=== PATIENT | male | born 1960 | race Caucasian/White ===

== ENCOUNTER 2017-10-01 12:12 | Inpatient (IN) | payer OTHER ==
[~2017-10-01] VITALS: Ht 175.3 cm; Wt 113.0 kg
[~2017-10-01 12:12] MED LIST: ALBU8.5H8 INH; ASPI325T11 PO; ATOR40TA PO; ESOM20CA PO; FLUT1DIS3 IH; HYDR25TA9 PO; LOSA50TA6 PO; MELO15TA6 PO; METF500T4 PO; POTA20TA12 PO; PRAM0.255 PO; TERB250T PO
[2017-10-01 12:51] VITALS: BP 143/91
[2017-10-01] MEDS: IV NORMAL SALINE 1,000ML 1,000 ML IV SCH ×2 (12:56→21:23)
[2017-10-01] MEDS ORDERED: KETOROLAC 30 MG/ML VIAL. IV PRN (13:00)
[2017-10-01] MEDS ORDERED: ONDANSETRON PF 4 MG/2 ML VIAL. IV PRN (13:00)
[2017-10-01] MEDS ORDERED: CETI10TA16 PO (13:38)
[2017-10-01] MEDS ORDERED: TAMS0.4C97 PO (13:38)
[2017-10-01] MEDS ORDERED: ESCITALOPRAM OX20 MG PO (13:38)
[2017-10-01] MEDS ORDERED: ASPI-630 PO (13:38)
[2017-10-01] MEDS ORDERED: LACT1CAP8 PO (13:38)
[2017-10-01] MEDS ORDERED: ALBU8.5H8 INH (13:39)
[2017-10-01] MEDS ORDERED: BUDE10.2 IH (13:39)
[2017-10-01] MEDS ORDERED: GABA-586 PO (13:39)
[2017-10-01 13:48] LABS: BASO # 0.1 x10^3/uL (0.0-0.2); BASO % 1 % (0-3); EOS % 0 % (0-3); HEMATOCRIT 46.3 % (39.0-53.0); HEMOGLOBIN 15.3 g/dL (13.0-17.5); LYMPH # 0.8 x10^3/uL (1.0-4.8); LYMPH % 5 % (24-48); MEAN CORPUSCULAR HEMOGLOBIN 28 pg (25-35); MEAN CORPUSCULAR HGB CONC 33 g/dL (31-37); MEAN CORPUSCULAR VOLUME 85 fL (79-100); MONO # 0.4 x10^3/uL (0.0-1.1); MONO % 2 % (0-9); NEUT # 14.7 x10^3uL (1.8-7.7); NEUT % 92 % (31-73); PLATELET COUNT 222 x10^3/uL (140-400); RED BLOOD COUNT 5.46 x10^6/uL (4.30-5.70); RED CELL DISTRIBUTION WIDTH 14.4 % (11.5-14.5)
[2017-10-01 13:52] VITALS: BP 143/91
[2017-10-01] MEDS ORDERED: Influenza vaccine per PROTOCOL. MC PRN (14:00)
[2017-10-01 14:01] LABS: ALBUMIN 3.5 g/dL (3.4-5.0); ALBUMIN/GLOBULIN RATIO 0.9 (1.0-1.7); CALCIUM 9.8 mg/dL (8.5-10.1); CREATININE 1.3 mg/dL (0.7-1.3); GFR 57.1; MAGNESIUM 1.6 mg/dL (1.8-2.4); TOTAL BILIRUBIN 1.5 mg/dL (0.2-1.0); TOTAL PROTEIN 7.5 g/dL (6.4-8.2)
[2017-10-01 14:14] LABS: BACTERIA,URINE 0 /HPF (0-FEW); BILIRUBIN,URINE NEG (NEG); CLARITY,URINE CLEAR; COLOR,URINE YELLOW; GLUCOSE,URINE NEG (NEG); NITRITE,URINE NEG (NEG); RBC,URINE 0 /HPF (0-2); UROBILINOGEN,URINE 1 mg/dL (0.2 mg/dL)
[2017-10-01 14:24] LABS: % BANDS 5 % (0-9); % BASOS 0 % (0-3); % EOS 0 % (0-5); % LYMPHS 8 % (24-48); % MONOS 2 % (0-10); % SEGS 85 % (35-66); PLT ESTIMATE ADEQUATE (ADEQUATE)
[2017-10-01] MEDS ORDERED: FLU VACC QS2017-18 (36MOS+)/PF 0.5 ML SYRINGE. VAX IM ONE (15:00)
[2017-10-01] MEDS: IPRATRPIUM/ALBUTEROL 0.5/2.5MG 3 ML NEBU. NEB PRN (15:15)
[2017-10-01 15:19] VITALS: BP 122/81
[2017-10-01] MEDS ORDERED: ALBUTEROL SULFATE 8GM INHALER. INH PRN ×2 (15:30)
[2017-10-01] MEDS ORDERED: traMADol 50 MG TABLET PO PRN (15:30)
[2017-10-01] MEDS ORDERED: ALBUTEROL SULFATE 2.5 MG/3 ML NEBU. NEB PRN (15:45)
[2017-10-01] MEDS: ENOXAPARIN 40 MG/0.4 ML DISP.SYRIN. SQ SCH (16:00)
[2017-10-01] MEDS: metFORMIN 500 MG TABLET PO SCH (17:36)
[2017-10-01 19:37] VITALS: BP 139/79
[2017-10-01 19:56] LABS: INFLUENZA A PATIENT NEGATIVE (NEGATIVE); INFLUENZA B PATIENT NEGATIVE (NEGATIVE)
[2017-10-01] MEDS: HYDROcodone/CHLORPHEN POLIS 5 ML SUS.ER.12H PO PRN (21:19)
[2017-10-01] MEDS: GABAPENTIN 300 MG CAPSULE. PO SCH (21:20)
[2017-10-01] MEDS: ATORVASTATIN CALCIUM 20 MG TABLET PO SCH (21:20)
[2017-10-01] MEDS: CETIRIZINE HCL 10 MG TABLET PO SCH (21:20)
[2017-10-01] MEDS: ZOLPIDEM 5 MG TABLET. PO PRN (21:20)
[2017-10-01] MEDS: POTASSIUM CHLORIDE 20 MEQ TABLET.ER. PO SCH (21:21)
[2017-10-01 23:15] VITALS: BP 122/72
[2017-10-02 05:45] VITALS: BP 133/82
[2017-10-02 06:42] LABS: BASO % 0 % (0-3); EOS # 0.1 x10^3/uL (0.0-0.7); EOS % 1 % (0-3); HEMATOCRIT 42.1 % (39.0-53.0); LYMPH # 1.8 x10^3/uL (1.0-4.8); LYMPH % 19 % (24-48); MEAN CORPUSCULAR HEMOGLOBIN 28 pg (25-35); MEAN CORPUSCULAR HGB CONC 33 g/dL (31-37); MEAN CORPUSCULAR VOLUME 85 fL (79-100); MONO # 0.7 x10^3/uL (0.0-1.1); MONO % 7 % (0-9); NEUT # 7.2 x10^3uL (1.8-7.7); NEUT % 73 % (31-73); PLATELET COUNT 194 x10^3/uL (140-400); RED BLOOD COUNT 4.97 x10^6/uL (4.30-5.70); RED CELL DISTRIBUTION WIDTH 14.6 % (11.5-14.5); WHITE BLOOD COUNT 9.8 x10^3/uL (4.0-11.0)
[2017-10-02 06:52] LABS: CALCIUM 8.5 mg/dL (8.5-10.1); CREATININE 1.4 mg/dL (0.7-1.3); GFR 52.4; POTASSIUM 4.1 mmol/L (3.5-5.1)
--- NOTE | 2017-10-02 08:38 | RAD ---
CHEST PA LATERAL History:Cough, fever for 2 days Comparison: 07/15/2011 Findings:2 views of the chest are submitted. There are somewhat low lung volumes. No dependent pleural fluid or pneumothorax is identified. Lateral view is degraded by motion. There may be some retrocardiac atelectasis. No lobar infiltrate is identified. Impression: 1.There may be some retrocardiac atelectasis although lateral view degraded by motion.
[2017-10-02] MEDS: IV NORMAL SALINE 1,000ML 1,000 ML IV SCH ×2 (08:56→18:56)
[2017-10-02] MEDS ORDERED: GABAPENTIN 300 MG CAPSULE. PO SCH (09:00)
[2017-10-02] MEDS ORDERED: POTASSIUM CHLORIDE 20 MEQ TABLET.ER. PO SCH (09:00)
[2017-10-02] MEDS ORDERED: CETIRIZINE HCL 10 MG TABLET PO SCH (09:00)
[2017-10-02] MEDS ORDERED: MELOXICAM 15 MG TABLET. PO SCH (09:00)
[2017-10-02] MEDS: TAMSULOSIN 0.4 MG CAP.ER.24H. PO SCH (09:01)
[2017-10-02] MEDS: LACTOBACILLUS RHAMNOSUS GG 1 CAPSULE. PO SCH (09:01)
[2017-10-02] MEDS: LOSARTAN 50 MG TABLET. PO SCH (09:01)
[2017-10-02] MEDS: metFORMIN 500 MG TABLET PO SCH (09:01)
[2017-10-02] MEDS: POTASSIUM CHLORIDE 20 MEQ TABLET.ER. PO SCH ×2 (09:02→20:46)
[2017-10-02] MEDS: hydroCHLOROthiazide 25 MG TABLET PO SCH (09:02)
[2017-10-02] MEDS: CITALOPRAM 20 MG TABLET. PO SCH (09:02)
[2017-10-02] MEDS: ASPIRIN 81 MG TAB.CHEW PO SCH (09:02)
[2017-10-02] MEDS: IPRATRPIUM/ALBUTEROL 0.5/2.5MG 3 ML NEBU. NEB PRN (10:14)
[2017-10-02] MEDS: HYDROcodone/CHLORPHEN POLIS 5 ML SUS.ER.12H PO PRN (10:14)
[2017-10-02 11:14] VITALS: BP 124/66
[2017-10-02 13:05] VITALS: BP 160/74
[2017-10-02] MEDS ORDERED: LIDO:MAALOX:BENADRYL 1:1:1 180 ML BOTTLE. PO PRN (13:15)
[2017-10-02 15:27] VITALS: BP 118/65
[2017-10-02] MEDS: ENOXAPARIN 40 MG/0.4 ML DISP.SYRIN. SQ SCH (16:06)
[2017-10-02] MEDS: IPRATRPIUM/ALBUTEROL 0.5/2.5MG 3 ML NEBU. NEB SCH ×2 (16:06→20:45)
[2017-10-02 18:22] VITALS: BP 125/70
[2017-10-02] MEDS: ATORVASTATIN CALCIUM 20 MG TABLET PO SCH (20:46)
[2017-10-02] MEDS: CETIRIZINE HCL 10 MG TABLET PO SCH (20:46)
[2017-10-02] MEDS: ZOLPIDEM 5 MG TABLET. PO PRN (20:46)
[2017-10-02] MEDS: GABAPENTIN 300 MG CAPSULE. PO SCH (20:46)
[2017-10-02] MEDS: methylPREDNISolone SOD SUCC PF 40 MG/ML VIAL. IV SCH (20:46)
--- NOTE | 2017-10-02 22:31 | PN ---
DATE: 10/02/2017 SUBJECTIVE: A 56-year-old gentleman in with sepsis, doing reasonably well, although his chest x-ray does not show anything. He is short of breath with some asthmatic wheezing. He has been increased on his breathing treatments. He is feeling a little better. OBJECTIVE: VITAL SIGNS: Blood pressure 160/70 which is up from 120/60, respiratory rate 22, pulse 90. He is afebrile, although he did have a positive lactic acid of 3.1. The patient continues to be monitored carefully. He still is somewhat short of breath with minimal exertion. LUNGS: Diminished throughout, poor movement of air. CARDIOVASCULAR: Regular sinus rhythm, S1-S2, without murmur, rub, thrill, or extra heart sound. ABDOMEN: Soft, nontender. No rebound or guarding. Positive bowel sounds. No hepatosplenomegaly was noted. EXTREMITIES: No clubbing, cyanosis, nor edema. NEUROLOGIC: Alert and oriented. LABORATORY DATA: His labs do show an elevation of his creatinine up to 1.4. DC the meloxicam and metformin. Blood sugars are down to 93. Lactic acid is coming down. White count down from 16 down to 9. So we are making some progress there. IMPRESSION: Acute exacerbation of chronic obstructive pulmonary disease, sepsis, acute bronchitis, pharyngitis. PLAN: Continue with IV antibiotic therapy and make further evaluation on him as indicated per those read. AFTAB RIVERA MD DR: ZEFERINO/tony JOB#: [id number] / [id number]
[2017-10-03] MEDS: IV NORMAL SALINE 1,000ML 1,000 ML IV SCH (04:10)
[2017-10-03] MEDS: IPRATRPIUM/ALBUTEROL 0.5/2.5MG 3 ML NEBU. NEB SCH ×2 (05:37→11:19)
[2017-10-03 06:00] VITALS: BP 140/78
[2017-10-03 07:45] LABS: BASO % 0 % (0-3); EOS % 0 % (0-3); HEMATOCRIT 43.2 % (39.0-53.0); HEMOGLOBIN 14.4 g/dL (13.0-17.5); LYMPH # 0.7 x10^3/uL (1.0-4.8); LYMPH % 7 % (24-48); MEAN CORPUSCULAR HEMOGLOBIN 28 pg (25-35); MEAN CORPUSCULAR HGB CONC 33 g/dL (31-37); MEAN CORPUSCULAR VOLUME 85 fL (79-100); MONO # 0.4 x10^3/uL (0.0-1.1); MONO % 4 % (0-9); NEUT # 9.1 x10^3uL (1.8-7.7); NEUT % 89 % (31-73); PLATELET COUNT 212 x10^3/uL (140-400); RED BLOOD COUNT 5.09 x10^6/uL (4.30-5.70); RED CELL DISTRIBUTION WIDTH 14.6 % (11.5-14.5); WHITE BLOOD COUNT 10.2 x10^3/uL (4.0-11.0)
[2017-10-03 07:54] LABS: CALCIUM 8.9 mg/dL (8.5-10.1); CREATININE 1.2 mg/dL (0.7-1.3); GFR 62.6; POTASSIUM 4.3 mmol/L (3.5-5.1)
[2017-10-03] MEDS: methylPREDNISolone SOD SUCC PF 40 MG/ML VIAL. IV SCH (08:08)
[2017-10-03] MEDS: TAMSULOSIN 0.4 MG CAP.ER.24H. PO SCH (08:08)
[2017-10-03] MEDS: hydroCHLOROthiazide 25 MG TABLET PO SCH (08:08)
[2017-10-03] MEDS: POTASSIUM CHLORIDE 20 MEQ TABLET.ER. PO SCH (08:08)
[2017-10-03] MEDS: CITALOPRAM 20 MG TABLET. PO SCH (08:08)
[2017-10-03] MEDS: ASPIRIN 81 MG TAB.CHEW PO SCH (08:09)
[2017-10-03] MEDS: LACTOBACILLUS RHAMNOSUS GG 1 CAPSULE. PO SCH (08:09)
[2017-10-03] MEDS: LOSARTAN 50 MG TABLET. PO SCH (08:09)
[2017-10-03 10:52] VITALS: BP 135/82
[2017-10-03] MEDS ORDERED: ACETAMINOPHEN 500 MG TABLET PO PRN (13:00)
[2017-10-03] MEDS ORDERED: HYDROcodone/CHLORPHEN POLIS PO (13:40)
[2017-10-03] MEDS ORDERED: LEVO500T59 PO (13:40)
[2017-10-03] MEDS ORDERED: LIDO MAALOX BENADRYL PO (13:40)
[2017-10-03] MEDS ORDERED: METH4TAB2 PO (13:40)
== END 2017-10-03 14:41 | disposition home or self-care (01) | DRG 871 ==
LOC: 1 SOUTH 12:27 → OBSVTOIN 14:07 → UNDODISOB 14:13
PROVIDERS: ADMIT Family Medicine; ATTEND Family Medicine
DX: A41.9 Sepsis, unspecified organism (principal); J18.9 Pneumonia, unspecified organism; J44.0 Chronic obstructive pulmonary disease with (acute) lower respiratory infection; J44.1 Chronic obstructive pulmonary disease with (acute) exacerbation; J20.9 Acute bronchitis, unspecified; E11.9 Type 2 diabetes mellitus without complications; Z79.4 Long term (current) use of insulin; Z87.442 Personal history of urinary calculi; Z98.61 Coronary angioplasty status; Z83.3 Family history of diabetes mellitus; Z80.42 Family history of malignant neoplasm of prostate; Z84.1 Family history of disorders of kidney and ureter; Z88.8 Allergy status to other drugs, medicaments and biological substances
CPT/HCPCS: 36415; 71020; 80048; 80053; 81001; 82550; 82947; 83605; 83735; 84484; 85007; 85025; 85379; 86738; 87040; 87086; 87804; 90686; 93005; 94640; G0378; G0379; J0696; J1650; J1885; J1956; J2920; J7620; J7030

== ENCOUNTER 2019-01-16 04:59 | Inpatient (IN) | payer MEDICARE, OTHER ==
[~2019-01-16] VITALS: Ht 175.3 cm; Wt 120.0 kg
[~2019-01-16 04:59] MED LIST changes: +ALBU2.5V8 INH; -ALBU8.5H8 INH; +ASPI-630 PO; +BUDE10.2 IH; +CETI10TA16 PO; +ESCITALOPRAM OX20 MG PO; +GABA-586 PO; +HYDR-2145 PO; -HYDR25TA9 PO; +HYDROcodone/CHLORPHEN POLIS PO; +LACT1CAP8 PO; +LEVO500T59 PO; +LIDO MAALOX BENADRYL PO; -LOSA50TA6 PO; +LOSA50TA86 PO; +METF500T16 PO; -METF500T4 PO; +METH4TAB2 PO; +TAMS0.4C97 PO
--- NOTE | 2019-01-16 05:21 | ED.ADGEN ---
Past History Past Medical History: Asthma, Bronchitis, Diabetes, GERD, High Cholesterol, Hypertension, Kidney Stones, Other (KALYAN GUERIN MD) Past Surgical History: Other (KALYAN GUERIN MD) Smoking: Non-smoker Alcohol Use: None Drug Use: None (KALYAN GUERIN MD) Adult General Chief Complaint Chief Complaint ". I got up to go to the bathroom.. and got to coughing really hard.. and I passed out.... 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 Pt. fell and incurred a 5 cm laceration to Rt eyebrow and forehead. Laceration is to the level of the bone and is actively bleeding. Pt. is able to open eyes and no reported vision changes. EOMI appears intact. Injury dose not appear to have affected the levator of Rt. eye lid. Pt. denies other injury. Fall was witnessed by significant other. She advised he was having one of his " coughing fits" and loss conscious. Pt hit the floor head lst. Pt. took what seemed like several minutes before he started to awaken . Pt. took several more minutes before he was "making sense ". Pt. remained somewhat confused until arrival at ED. Significant other stated he is still " a little off.. and maybe confused". She states he is usually more demanding to be in control, direct and stubborn. Significant other states this loss of conscious has happened before with his coughing fits. She states he has even seen him passed out while in a chair during coughing episodes. Pt. has a hx of chronic asthma and bronchitis. Pt. reports he does not smoke. Pt. states he has had irregular heart rates before and had multiple work ups at [facility] , [facility], [place], and other hospitals. Pt. significant cough syncope episodes that have lasted minutes have increase to 6 x the past few months. Pt. has hx chronic bronchitis, bronchiectasis, sinusitis and asthma. Patient does not smoke. Patient is not currently on antibiotics or steroids. Has not had any changes in medications. Pt. has had pneumonia vaccination and a flu vaccination this season. Patient is not on any anticoagulants. Pt. normally follows at [place] and for cardiology was last seen at [facility]. (KALYAN GUERIN MD) Review of Systems Review of Systems Constitutional: Denies fever or chills [] Eyes: Denies change in visual acuity, redness, or eye pain [] HENT: Denies nasal congestion or sore throat [] Respiratory: Complaints of severe coughing episodes and shortness of breath [] Cardiovascular: No additional information not addressed in HPI [] GI: Denies abdominal pain, nausea, vomiting, bloody stools or diarrhea [] : Denies dysuria or hematuria [] Musculoskeletal: Denies back pain or joint pain [] Integument: Denies rash or skin lesions [] Laceration complaint Rt forehead Neurologic: Complaints of headache, denies focal weakness or sensory changes [] Hx. of cough syncope. Endocrine: Denies polyuria or polydipsia [] All other systems were reviewed and found to be within normal limits, except as documented in this note. (KALYAN GUERIN MD) Family History Family History Non-contributory (KALYAN GUERIN MD) Current Medications Current Medications Current Medications Medications (Trade) Dose Ordered Sig/Mitra Start Time Stop Time Status Last Admin Dose Admin Albuterol/ Ipratropium (Duoneb) 3 ml 1X ONCE 01/16/19 06:00 01/16/19 06:01 DC 01/16/19 06:18 3 ML Azithromycin (Zithromax) 500 mg 1X ONCE 01/16/19 06:00 01/16/19 06:01 DC 01/16/19 07:11 500 MG Diphtheria/ Tetanus/Acell Pertussis (Boostrix) 0.5 ml ONCE ONCE 01/16/19 06:00 01/16/19 06:01 DC Lactated Ringer's 1,000 ml @ 100 mls/hr Q10H 01/16/19 05:30 01/16/19 15:29 DC Lidocaine/ Epinephrine (Xylocaine 2%-Epi 1:100,000) 20 ml 1X ONCE 01/16/19 05:30 01/16/19 05:53 DC 01/16/19 05:45 20 ML (JONNY ANTONIO DO) Allergies Allergies Allergies Coded Allergies Type Severity Reaction Last Updated Verified acetaminophen Allergy Unknown VOMITING 06/19/15 Yes oxycodone HCl Allergy Unknown VOMITING 06/19/15 Yes (JONNY ANTONIO DO) Physical Exam Physical Exam Constitutional: in acute distress, confused in appearance. [] HENT: Normocephalic, large hematoma and laceration Rt. forehead and eyebrow as per HPI, bilateral external ears normal, TM intact, oropharynx moist, no oral exudates, nose normal. []Has good bite. Laceration Actively bleeding if no direct pressure applied constantly. Eyes: PERRLA, EOMI, conjunctiva normal, no discharge. No double vision with terminal focus. Neck: Normal range of motion, no tenderness, supple, no stridor. [] Cardiovascular:Irregular Heart rate and regular rhythm, no murmur []. Monitor shows occasional non conducted p waves up to two atrial beats. Complex narrow on monitor. Lungs & Thorax: Bilateral breath sounds equal at apexes with rhonchi and wheezing throughout on auscultation []Episodes of severe coughing spasms. Min. production of sputum. (Eventually had to give a Albuterol tx. with 3 cc of Lidocaine to breath the coughing spasm so I could attempt closure of laceration) Abdomen: Bowel sounds normal, soft, no tenderness, no masses, no pulsatile masses. [] Skin: Warm, dry, no erythema, no rash. [] Back: No tenderness, no CVA tenderness. [] Extremities: No tenderness, no cyanosis, no clubbing, ROM intact, no edema. [] Neurologic: Alert and oriented X 3, but sometimes slow to answer questions, moves all ext. on request, reports distal l sensory function, no gross focal deficits noted. [] Psychologic: Affect anxious, judgement normal, mood at times angry and frustrated. (KALYAN GUERIN MD) Current Patient Data Vital Signs Vital Signs Date Time Temp Pulse Resp B/P (MAP) Pulse Ox O2 Delivery O2 Flow Rate FiO2 01/16/19 04:59 98.5 88 22 98 Room Air (JONNY ANTONIO DO) Lab Results Laboratory Tests Test 01/16/19 05:15 White Blood Count 6.8 x10^3/uL (4.0-11.0) Red Blood Count 5.30 x10^6/uL (4.30-5.70) Hemoglobin 14.1 g/dL (13.0-17.5) Hematocrit 43.3 % (39.0-53.0) Mean Corpuscular Volume 82 fL (79-100) Mean Corpuscular Hemoglobin 27 pg (25-35) Mean Corpuscular Hemoglobin Concent 33 g/dL (31-37) Red Cell Distribution Width 15.2 % (11.5-14.5) H Platelet Count 252 x10^3/uL (140-400) Neutrophils (%) (Auto) 57 % (31-73) Lymphocytes (%) (Auto) 29 % (24-48) Monocytes (%) (Auto) 10 % (0-9) H Eosinophils (%) (Auto) 3 % (0-3) Basophils (%) (Auto) 1 % (0-3) Neutrophils # (Auto) 3.9 x10^3uL (1.8-7.7) Lymphocytes # (Auto) 2.0 x10^3/uL (1.0-4.8) Monocytes # (Auto) 0.7 x10^3/uL (0.0-1.1) Eosinophils # (Auto) 0.2 x10^3/uL (0.0-0.7) Basophils # (Auto) 0.1 x10^3/uL (0.0-0.2) Prothrombin Time 10.1 SEC (9.4-11.4) Prothrombin Time INR 1.0 (0.9-1.1) PTT 27 SEC (23-33) D-Dimer (Milvia) 0.42 mg/L (0.00-0.50) Sodium Level 140 mmol/L (136-145) Potassium Level 4.0 mmol/L (3.5-5.1) Chloride Level 104 mmol/L (98-107) Carbon Dioxide Level 28 mmol/L (21-32) Anion Gap 8 (6-14) Blood Urea Nitrogen 13 mg/dL (8-26) Creatinine 1.0 mg/dL (0.7-1.3) Estimated GFR (Cockcroft-Gault) 76.7 Glucose Level 134 mg/dL (70-99) H Lactic Acid Level 1.8 mmol/L (0.4-2.0) Calcium Level 8.9 mg/dL (8.5-10.1) Magnesium Level 1.7 mg/dL (1.8-2.4) L Total Bilirubin 0.8 mg/dL (0.2-1.0) Direct Bilirubin 0.2 mg/dL (0.0-0.2) Aspartate Amino Transferase (AST) 22 U/L (15-37) Alanine Aminotransferase (ALT) 39 U/L (16-63) Alkaline Phosphatase 160 U/L (46-116) H Creatine Kinase 260 U/L (39-308) Troponin I Quantitative < 0.017 ng/mL (0-0.055) ID-Rnp-V-Type Natriuretic Peptide 23 pg/mL (0-124) Total Protein 6.9 g/dL (6.4-8.2) Albumin 3.1 g/dL (3.4-5.0) L Triglycerides Level 86 mg/dL (0-150) Cholesterol Level 118 mg/dL (0-200) LDL Cholesterol, Calculated 61 mg/dL (0-100) VLDL Cholesterol, Calculated 17 mg/dL (0-40) Non-HDL Cholesterol Calculated 78 mg/dL (0-129) HDL Cholesterol 40 mg/dL (40-60) Cholesterol/HDL Ratio 2.0 Lipase 77 U/L (73-393) Thyroid Stimulating Hormone (TSH) 2.715 uIU/mL (0.358-3.740) Ethyl Alcohol Level < 10 mg/dL (0-10) (JONNY ANTONIO DO) Lab Results Laboratory Tests Test 01/16/19 05:15 White Blood Count 6.8 x10^3/uL (4.0-11.0) Red Blood Count 5.30 x10^6/uL (4.30-5.70) Hemoglobin 14.1 g/dL (13.0-17.5) Hematocrit 43.3 % (39.0-53.0) Mean Corpuscular Volume 82 fL (79-100) Mean Corpuscular Hemoglobin 27 pg (25-35) Mean Corpuscular Hemoglobin Concent 33 g/dL (31-37) Red Cell Distribution Width 15.2 % (11.5-14.5) H Platelet Count 252 x10^3/uL (140-400) Neutrophils (%) (Auto) 57 % (31-73) Lymphocytes (%) (Auto) 29 % (24-48) Monocytes (%) (Auto) 10 % (0-9) H Eosinophils (%) (Auto) 3 % (0-3) Basophils (%) (Auto) 1 % (0-3) Neutrophils # (Auto) 3.9 x10^3uL (1.8-7.7) Lymphocytes # (Auto) 2.0 x10^3/uL (1.0-4.8) Monocytes # (Auto) 0.7 x10^3/uL (0.0-1.1) Eosinophils # (Auto) 0.2 x10^3/uL (0.0-0.7) Basophils # (Auto) 0.1 x10^3/uL (0.0-0.2) Prothrombin Time 10.1 SEC (9.4-11.4) Prothrombin Time INR 1.0 (0.9-1.1) PTT 27 SEC (23-33) D-Dimer (Milvia) 0.42 mg/L (0.00-0.50) Sodium Level 140 mmol/L (136-145) Potassium Level 4.0 mmol/L (3.5-5.1) Chloride Level 104 mmol/L (98-107) Carbon Dioxide Level 28 mmol/L (21-32) Anion Gap 8 (6-14) Blood Urea Nitrogen 13 mg/dL (8-26) Creatinine 1.0 mg/dL (0.7-1.3) Estimated GFR (Cockcroft-Gault) 76.7 Glucose Level 134 mg/dL (70-99) H Lactic Acid Level 1.8 mmol/L (0.4-2.0) Calcium Level 8.9 mg/dL (8.5-10.1) Magnesium Level 1.7 mg/dL (1.8-2.4) L Total Bilirubin 0.8 mg/dL (0.2-1.0) Direct Bilirubin 0.2 mg/dL (0.0-0.2) Aspartate Amino Transferase (AST) 22 U/L (15-37) Alanine Aminotransferase (ALT) 39 U/L (16-63) Alkaline Phosphatase 160 U/L (46-116) H Creatine Kinase 260 U/L (39-308) Troponin I Quantitative < 0.017 ng/mL (0-0.055) ZE-Upn-T-Type Natriuretic Peptide 23 pg/mL (0-124) Total Protein 6.9 g/dL (6.4-8.2) Albumin 3.1 g/dL (3.4-5.0) L Triglycerides Level 86 mg/dL (0-150) Cholesterol Level 118 mg/dL (0-200) LDL Cholesterol, Calculated 61 mg/dL (0-100) VLDL Cholesterol, Calculated 17 mg/dL (0-40) Non-HDL Cholesterol Calculated 78 mg/dL (0-129) HDL Cholesterol 40 mg/dL (40-60) Cholesterol/HDL Ratio 2.0 Lipase 77 U/L (73-393) Thyroid Stimulating Hormone (TSH) 2.715 uIU/mL (0.358-3.740) Ethyl Alcohol Level < 10 mg/dL (0-10) (KALYAN GUERIN MD) EKG EKG My interpretation EKG shows a ventricular rate of 87. Does have some nonspecific contour abnormalities in the anterior lateral leads. By multiple P waves. T waves appear to conduct on the EKG. Long monitor strip runs patient appears to have nonconducting P waves occasionally[] (KALYAN GUERIN MD) Radiology/Procedures Radiology/Procedures I interpretation chest x-ray shows chronic lung findings but no large infiltrate. Does appear to have calcium plaque and aorta. My interpretation of CT of head shows no shift, mass, edema, bleed, or displaced fracture. Does have findings of hematoma on right forehead. See formal report when available my interpretation CT head that shows no obvious fracture dislocation. Does have some degenerative joint changes. See formal report when available (KALYAN GUERIN MD) Impressions: REASON: cough syncope with head injury PROCEDURE: CT HEAD AND CERVICAL SPINE WO CT head without contrast. CT cervical spine without contrast. HISTORY: Syncope. Head injury. TECHNIQUE: Noncontrast CT imaging the head and cervical spine with multiplanar reconstructions. PQRS statement: CT scans at this facility use dose reduction including either automated exposure control, iterative reconstructions, and /or weight based radiation dosing via mA and kV modification when appropriate to reduce radiation dose to as low as reasonably achievable. CT head findings: No intracranial hemorrhage, mass, hydrocephalus, extra-axial fluid collections or infarction. Orbits, mastoids, paranasal sinuses and bones are unremarkable. IMPRESSION: No acute intracranial CT abnormality. CT cervical spine findings: Craniocervical junction intact. Cervical vertebral body height and alignment intact. No fracture of the cervical spine. Paraspinal tissues and lung apices are unremarkable. IMPRESSION: No acute osseous injury of the cervical spine. (JONNY ANTONIO DO) Course & Med Decision Making Course & Med Decision Making Pertinent Labs and Imaging studies reviewed. (See chart for details) Suture note- laceration irrigated with normal saline. Injected edge of laceration with 2% lidocaine. Then irrigated ,re-clean and explored base of laceration. Placed 10 Vicryl 3-0 sutures internally. Placed 10 ext. 6-0 nylon sutures externally. This allowed adequate control of active bleeding. Antibiotic ointment applied and pressure dressing. My interpretation of labs showed no acute elevations in troponin, stable hemoglobin, no coagulopathy, relatively stable electrolytes with exception of elevation of glucose. Full labs pending at shift change. Discussed presentation, testing and treatment plan with Dr. Valle. Will admit to telemetry for observation and neuro /cardiology. ( If no surgical issues. - awaiting formal CT reading) Reviewed presentation with Dr. Cervantes at Shift change. He will make disposition ref. CT , CXR ect. while pt being held in ED for admission or transfer. [] (KALYAN GUERIN MD) Final Impression Final Impression 1. Hx. of Cough Syncope 2. Head Injury- laceration[]-Contusion 3. Hx. Asthma 4. Hx. Chronic Bronchitis/ bronchiectasis 5. History of dysrhythmia (KALYAN GUERIN MD) Dragon Disclaimer Dragon Disclaimer This electronic medical record was generated, in whole or in part, using a voice recognition dictation system. (KALYAN GUERIN MD) Dragon Disclaimer This chart was dictated in whole or in part using Voice Recognition software in a busy, high-work load, and often noisy Emergency Department environment. It may contain unintended and wholly unrecognized errors or omissions. (KALYAN GUERIN MD) Discharge Summary Brief Hospital Course Allergies Allergies Coded Allergies Type Severity Reaction Last Updated Verified acetaminophen Allergy Unknown VOMITING 06/19/15 Yes oxycodone HCl Allergy Unknown VOMITING 06/19/15 Yes (KALYAN GUERIN MD) Vital Signs Vital Signs Date Time Temp Pulse Resp B/P (MAP) Pulse Ox O2 Delivery O2 Flow Rate FiO2 01/16/19 04:59 98.5 88 22 98 Room Air (KALYAN GUERIN MD) Lab Results Laboratory Tests Test 01/16/19 05:15 White Blood Count 6.8 x10^3/uL (4.0-11.0) Red Blood Count 5.30 x10^6/uL (4.30-5.70) Hemoglobin 14.1 g/dL (13.0-17.5) Hematocrit 43.3 % (39.0-53.0) Mean Corpuscular Volume 82 fL (79-100) Mean Corpuscular Hemoglobin 27 pg (25-35) Mean Corpuscular Hemoglobin Concent 33 g/dL (31-37) Red Cell Distribution Width 15.2 % (11.5-14.5) Platelet Count 252 x10^3/uL (140-400) Neutrophils (%) (Auto) 57 % (31-73) Lymphocytes (%) (Auto) 29 % (24-48) Monocytes (%) (Auto) 10 % (0-9) Eosinophils (%) (Auto) 3 % (0-3) Basophils (%) (Auto) 1 % (0-3) Neutrophils # (Auto) 3.9 x10^3uL (1.8-7.7) Lymphocytes # (Auto) 2.0 x10^3/uL (1.0-4.8) Monocytes # (Auto) 0.7 x10^3/uL (0.0-1.1) Eosinophils # (Auto) 0.2 x10^3/uL (0.0-0.7) Basophils # (Auto) 0.1 x10^3/uL (0.0-0.2) Prothrombin Time 10.1 SEC (9.4-11.4) Prothromb Time International Ratio 1.0 (0.9-1.1) Activated Partial Thromboplast Time 27 SEC (23-33) D-Dimer (Milvia) 0.42 mg/L (0.00-0.50) Sodium Level 140 mmol/L (136-145) Potassium Level 4.0 mmol/L (3.5-5.1) Chloride Level 104 mmol/L (98-107) Carbon Dioxide Level 28 mmol/L (21-32) Anion Gap 8 (6-14) Blood Urea Nitrogen 13 mg/dL (8-26) Creatinine 1.0 mg/dL (0.7-1.3) Estimated GFR (Cockcroft-Gault) 76.7 Glucose Level 134 mg/dL (70-99) Lactic Acid Level 1.8 mmol/L (0.4-2.0) Calcium Level 8.9 mg/dL (8.5-10.1) Magnesium Level 1.7 mg/dL (1.8-2.4) Total Bilirubin 0.8 mg/dL (0.2-1.0) Direct Bilirubin 0.2 mg/dL (0.0-0.2) Aspartate Amino Transf (AST/SGOT) 22 U/L (15-37) Alanine Aminotransferase (ALT/SGPT) 39 U/L (16-63) Alkaline Phosphatase 160 U/L (46-116) Creatine Kinase 260 U/L (39-308) Troponin I Quantitative < 0.017 ng/mL (0-0.055) RH-Uqe-Z-Type Natriuretic Peptide 23 pg/mL (0-124) Total Protein 6.9 g/dL (6.4-8.2) Albumin 3.1 g/dL (3.4-5.0) Triglycerides Level 86 mg/dL (0-150) Cholesterol Level 118 mg/dL (0-200) LDL Cholesterol, Calculated 61 mg/dL (0-100) VLDL Cholesterol, Calculated 17 mg/dL (0-40) Non-HDL Cholesterol Calculated 78 mg/dL (0-129) HDL Cholesterol 40 mg/dL (40-60) Cholesterol/HDL Ratio 2.0 Lipase 77 U/L (73-393) Thyroid Stimulating Hormone (TSH) 2.715 uIU/mL (0.358-3.740) Ethyl Alcohol Level < 10 mg/dL (0-10) (KALYAN GUERIN MD) Brief Hospital Course Mr. Weinstein is a 58 old male who presented with episode of cough syncope and head injury. Plan admit or transfer. Orders written if admitted [place]. Dr. Antonio will make disposition. Currently no beds in hospital until after shift change. Formal CT, CXR and completion of labs pending. (KALYAN GUERIN MD) Discharge Information Condition at Discharge: Improved, Stable (KALYAN GUERIN MD) Dischare Medications Current Medications Lactated Ringer's 1,000 ml @ 100 mls/hr Q10H IV ; Start 01/16/19 at 05:30; Stop 01/16/19 at 15:29; Status DC Lidocaine/ Epinephrine (Xylocaine 2%-Epi 1:100,000) 20 ml 1X ONCE IJ Last administered on 01/16/19at 05:45; Admin Dose 20 ML; Start 01/16/19 at 05:30; Stop 01/16/19 at 05:53; Status DC Diphtheria/ Tetanus/Acell Pertussis (Boostrix) 0.5 ml ONCE ONCE VAX IM ; Start 01/16/19 at 06:00; Stop 01/16/19 at 06:01; Status DC Azithromycin (Zithromax) 500 mg 1X ONCE PO Last administered on 01/16/19at 07: 11; Admin Dose 500 MG; Start 01/16/19 at 06:00; Stop 01/16/19 at 06:01; Status DC Albuterol/ Ipratropium (Duoneb) 3 ml 1X ONCE NEB Last administered on at 06:18; Admin Dose 3 ML; Start 01/16/19 at 06:00; Stop 01/16/19 at 06:01; Status DC Active Scripts Active Reported Potassium Citrate 10 Meq Tablet.er 2 Tab PO BID Prednisone 1 Mg Tablet Unknown Dose PO PRN PRN Symbicort 160-4.5 Mcg Inhaler (Budesonide/Formoterol Fumarate) 10.2 Gm Hfa.aer.ad 2 Puff IH BID Montelukast Sodium Tablet (Montelukast Sodium) 10 Mg Tablet 10 Mg PO HS Glucophage Xr (Metformin Hcl) 500 Mg Tab.er.24h 750 Mg PO BID Folic Acid 1 Mg Tablet 1 Mg PO DAILY Voltaren (Diclofenac Sodium) 100 Gm Gel..gram. 1 Gm TP PRN PRN Gabapentin (Gabapentin) 100 Mg Capsule 200 Mg PO QHS Sertraline Hcl 100 Mg Tablet 100 Mg PO QHS Pantoprazole Sodium 40 Mg Tablet.dr 1 Tab PO DAILY Flomax (Tamsulosin Hcl) 0.4 Mg Cap.er.24h 1 Cap PO DAILY Cetirizine Hcl 10 Mg Tablet 1 Tab PO DAILY Losartan Potassium (Losartan Potassium) 50 Mg Tablet 50 Mg PO DAILY Proair Hfa Inhaler (Albuterol Sulfate) 8.5 Gm Hfa.aer.ad 1 Puff INH PRN Q6HRS PRN Lipitor (Atorvastatin Calcium) 40 Mg Tablet 40 Mg PO QHS (KALYAN GUERIN MD) KALYAN GUERIN MD Jan 16, 2019 05:21 JONNY ANTONIO DO Jan 16, 2019 08:42
[2019-01-16] MEDS ORDERED: LIDOCAINE 2%/EPI 1:100,000 20 ML VIAL. IJ ONE (05:30)
[2019-01-16] MEDS ORDERED: IV RINGERS SOLUTION,LACTATED 1,000 ML IV SCH ×2 (05:30→06:30)
--- NOTE | 2019-01-16 05:32 | EKG ---
[address] [address] Test Date: 2019-01-16 Test Time: 05:27:46 Pat Name: JAMIN HIADLGO Department: Room: Gender: M Senior Associate: : 1960 Requested By: KALYAN GUERIN Order Number: [id number] Reading MD: Víctor Eugene MD Measurements Intervals [place] Rate: 87 P: 37 MI: 144 QRS: 30 QRSD: 86 T: 31 QT: 346 QTc: 417 Interpretive Statements SINUS RHYTHM Electronically Signed On 01-16-2019 12:13:15 CDT by Víctor Eugene MD
[2019-01-16 05:39] LABS: BASO # 0.1 x10^3/uL (0.0-0.2); BASO % 1 % (0-3); EOS # 0.2 x10^3/uL (0.0-0.7); EOS % 3 % (0-3); HEMATOCRIT 43.3 % (39.0-53.0); HEMOGLOBIN 14.1 g/dL (13.0-17.5); LYMPH % 29 % (24-48); MEAN CORPUSCULAR HEMOGLOBIN 27 pg (25-35); MEAN CORPUSCULAR HGB CONC 33 g/dL (31-37); MEAN CORPUSCULAR VOLUME 82 fL (79-100); MONO # 0.7 x10^3/uL (0.0-1.1); MONO % 10 % (0-9); NEUT # 3.9 x10^3uL (1.8-7.7); NEUT % 57 % (31-73); PLATELET COUNT 252 x10^3/uL (140-400); RED CELL DISTRIBUTION WIDTH 15.2 % (11.5-14.5); WHITE BLOOD COUNT 6.8 x10^3/uL (4.0-11.0)
[2019-01-16] MEDS ORDERED: AZITHROMYCIN 250 MG TABLET. PO ONE (06:00)
[2019-01-16] MEDS ORDERED: DIPHTH,PERTUSS(ACELL),TET TOX 0.5 ML DISP.SYRIN. VAX IM ONE (06:00)
[2019-01-16] MEDS ORDERED: IPRATRPIUM/ALBUTEROL 0.5/2.5MG 3 ML NEBU. NEB ONE (06:00)
[2019-01-16 06:04] LABS: ALBUMIN 3.1 g/dL (3.4-5.0); CALCIUM 8.9 mg/dL (8.5-10.1); DIRECT BILIRUBIN 0.2 mg/dL (0.0-0.2); GFR 76.7; MAGNESIUM 1.7 mg/dL (1.8-2.4); TOTAL BILIRUBIN 0.8 mg/dL (0.2-1.0); TOTAL PROTEIN 6.9 g/dL (6.4-8.2)
[2019-01-16] MEDS ORDERED: methylPREDNISolone SOD SUCC PF 125 MG/2 ML VIAL. IV ONE (06:45)
[2019-01-16] MEDS ORDERED: ONDANSETRON PF 4 MG/2 ML VIAL. IV PRN (06:45)
[2019-01-16] MEDS ORDERED: ALBUTEROL SULFATE 2.5 MG/3 ML NEBU. NEB ONE (06:45)
--- NOTE | 2019-01-16 07:08 | RAD ---
CT head without contrast. CT cervical spine without contrast. HISTORY: Syncope. Head injury. TECHNIQUE: Noncontrast CT imaging the head and cervical spine with multiplanar reconstructions. PQRS statement: CT scans at this facility use dose reduction including either automated exposure control, iterative reconstructions, and /or weight based radiation dosing via mA and kV modification when appropriate to reduce radiation dose to as low as reasonably achievable. CT head findings: No intracranial hemorrhage, mass, hydrocephalus, extra-axial fluid collections or infarction. Orbits, mastoids, paranasal sinuses and bones are unremarkable. IMPRESSION: No acute intracranial CT abnormality. CT cervical spine findings: Craniocervical junction intact. Cervical vertebral body height and alignment intact. No fracture of the cervical spine. Paraspinal tissues and lung apices are unremarkable. IMPRESSION: No acute osseous injury of the cervical spine. Electronically signed by: Arun Acosta MD (01/16/2019 7:04 AM) [id number]
--- NOTE | 2019-01-16 07:36 | RAD ---
Portable chest, 01/16/2019: HISTORY: Cough, congestion, syncope Comparison is made to a study from 10/01/2017. The heart size is normal. There is calcific plaquing of the aorta. No pulmonary infiltrate is seen. There is no evidence of pleural fluid. IMPRESSION: No acute cardiopulmonary abnormality is detected Electronically signed by: Vivek Louis MD (01/16/2019 7:33 AM) [facility]
[2019-01-16] MEDS ORDERED: IBUPROFEN 600 MG TABLET. PO ONE (08:00)
[2019-01-16] MEDS ORDERED: IPRATRPIUM/ALBUTEROL 0.5/2.5MG 3 ML NEBU. NEB SCH (08:00)
[2019-01-16] MEDS ORDERED: METOCLOPRAMIDE HCL 10 MG/2 ML VIAL. IV ONE (10:30)
[2019-01-16] MEDS ORDERED: KETOROLAC 30 MG/ML VIAL. IV ONE (10:30)
[2019-01-16] MEDS ORDERED: diphenhydrAMINE 50 MG/ML VIAL IVP ONE (10:30)
[2019-01-16] MEDS ORDERED: PANT40TA5 PO (11:39)
[2019-01-16] MEDS ORDERED: SERT100T8 PO (11:40)
[2019-01-16 11:41] VITALS: BP 161/96
[2019-01-16] MEDS: HYDROmorphone PF 1 MG/ML DISP.SYRIN IV PRN ×2 (13:26→17:59)
[2019-01-16 13:39] LABS: THYROID STIM HORMONE (TSH) 2.715 uIU/mL (0.358-3.740)
--- NOTE | 2019-01-16 14:07 | HP ---
ADMIT DATE: 01/16/2019 HISTORY OF PRESENT ILLNESS: The patient is a 58-year-old male patient who came to the Emergency Room with stating that he got up to go to the bathroom and got coughing really hard and has passed out. He stated that he has done this before, but however, it never passed to his head up so bad. He apparently fell and accrued a laceration to forehead that was sutured by the ER physician, he was extensively investigated in the Emergency Room, has had a CT scan of the head without contrast and also cervical spine without contrast and basically the CT scan of the head showed no acute intracranial abnormality. CT scan of cervical spine findings showed craniocervical junction was intact. Cervical vertebral body height and alignment are intact. No fracture of the cervical spine. Paraspinal tissues and lung apex are unremarkable. The patient was admitted with a cough, syncope, head injury, sustaining laceration of the forehead. He also had what seemed to be bronchial asthma, chronic bronchitis/bronchiectasis, and history of dysrhythmia, apparently he was seen for the same problem. According to him, he had 6th episodes of this cough-induced syncope and he was admitted to the [facility] as well at [facility]. In fact, the record that he was here in 2017 with similar symptoms. PAST MEDICAL HISTORY: Significant for type 2 diabetes mellitus, hypertension, hyperlipidemia, coronary artery disease, nephrolithiasis. He has lithotripsy about 18 times. He has morbid obesity with obstructive sleep apnea, on CPAP. He has also chronic bronchitis and questionable seizure disorder. He is also known to have bronchial asthma. PAST SURGICAL HISTORY: Significant for right ankle fracture, status post open reduction and internal fixation; right wrist fracture, status post open reduction and internal fixation. He has back surgery for removal of schwannoma that presented to the right lower extremity weakness. He has bilateral rotator cuff repair. ALLERGIES: HE IS ALLERGIC TO PERCOCET. MEDICATIONS: He is currently on following medications: He is on cetirizine 10 mg once a day, levofloxacin 500 mg once a day. He is on albuterol sulfate for ProAir 1 puff every 6 hours, albuterol sulfate 1 puff every 6 hours. He is on tamsulosin for Flomax 0.4 mg at bedtime, atorvastatin calcium 40 mg at bedtime. He is on losartan potassium 50 mg daily, gabapentin 200 mg at bedtime. He is on sertraline 100 mg p.o. daily, potassium chloride 40 mEq twice a day, Protonix 40 mg daily, lactobacillus for probiotic one daily. He is on methylprednisolone 4 mg in a tapering fashion. He is on metformin 750 mg twice a day, hydrocodone/chlorpheniramine 5 mL every 12 hours. He is on Maalox. He is on Magic mouthwash 10 mL 4 times a day. FAMILY HISTORY: He has 2 brothers, both older, one of them has macular degeneration, the other one is healthy. His sister at age of 35 in a motor vehicle accident. His father at age of 64 with complication of prostate cancer as well as dementia and diabetes mellitus. His mother due to multiple cerebrovascular accidents. SOCIAL HISTORY: He is , has a daughter and a son from previous marriage. He never smoked. He drinks a couple of beers every 2 weeks. 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 REVIEW OF SYSTEMS: The patient has denied any blurring of vision, cataract, glaucoma, or macular degeneration. Denied any earache, tinnitus, or sensorineural deafness. Denied any nosebleeds, stuffy nose, or postnasal drip. He did have a deviated nasal septum with recurrent episode of sinus infection. Denied any sore throat, sore tongue, toothache, hoarseness of voice or difficulty swallowing. Denied any nausea, vomiting, diarrhea, or constipation. Denied any hematemesis, melena, or hematochezia. Denied any dysuria, frequency, or hematuria. Did complain of nocturia. Denied any chest pain, shortness of breath, orthopnea, or paroxysmal nocturnal dyspnea. Denied any cough, phlegm, or hemoptysis. Did complain of cough that obviously induced the syncopal episode. Denied any chills, rigors, or fever. He does have obstructive sleep apnea on CPAP and has restless leg syndrome. PHYSICAL EXAMINATION: GENERAL: When I examined him today, he looked well and was clearly in no apparent respiratory distress. No pallor, jaundice, cyanosis, or thyromegaly. No jugular venous distension. No lower limb edema. VITAL SIGNS: His heart rate was 78, blood pressure was 161/96, temperature was 98, respiratory rate 20, and oxygen saturation was 93% on room air. HEAD, EYES, EARS, NOSE, AND THROAT: Showed normocephalic, atraumatic. NECK: Supple. HEART: Showed normal first and second heart sounds with no gallop, rub, or murmur. CHEST: Clear to auscultation. No crepitation or rhonchi. ABDOMEN: Distended, soft, nontender. No guarding or rigidity. No organomegaly. All hernial orifice intact. Bowel sounds normal. NEUROLOGIC: He was awake, alert, responding appropriately. All cranial nerves intact. EXTREMITIES: He moves extremities without difficulty, ambulates without assistance or assistive devices. LABORATORY DATA: His lab work on arrival showed a white cell count of 6800, hemoglobin 14, hematocrit 43, MCV 82, and platelet count of 252,000. Serum sodium was 140, potassium 4, chloride 104, bicarbonate 28, anion gap of 8, BUN 13, creatinine 1, estimated GFR was 76 mL per minute, his glucose 134, calcium was 8.9, magnesium was 1.7. Total bilirubin, AST, ALT, alkaline phosphatase were normal. Total protein was 6.9, albumin was 3.1. His first set of cardiac enzymes showed troponin to be less than 0.017. His prothrombin time was 10.1, INR of 1, aPTT was 27, and D-dimer was 0.42. His blood alcohol level was less than 10. Has had a CT scan of the head and cervical spine. The CT scan of the head showed no intracranial hemorrhage, mass, hydrocephalus, extraaxial fluid collection, or infarction. Orbits, mastoid, ____ sinuses and bones are unremarkable. The cervical vertebral body heights and alignment are intact. No fracture of the cervical spine. The paraspinal tissues and lung apices are unremarkable. His chest x-ray showed the heart size is normal. There is calcific plaquing of the aorta, no pulmonary infiltrate is seen. There is no evidence of pleural fluid. ASSESSMENT AND PLAN: The patient was admitted to a monitored bed with a cough-induced syncope with the head injury and forehead laceration. We have requested records from [facility] and from the [facility]. We have consulted the Cardiology to assist with management given this is a 6th episode of cough-induced syncope. CHERELLE CALDERA MD DR: TOSHIA/tony JOB#: [id number] / [id number]
[2019-01-16 14:50] LABS: BARBITURATES NEG (NEG); BENZODIAZEPINES NEG (NEG); CANNABINOIDS NEG (NEG); COCAINE NEG (NEG); METHADONE NEG (NEG); OPIATES POS (NEG); PHENCYCLIDINE NEG (NEG)
[2019-01-16 14:51] LABS: AMPHETAMINE/METHAMPHETAMINE NEG (NEG)
[2019-01-16 14:58] LABS: BILIRUBIN,URINE NEG (NEG); CLARITY,URINE CLEAR; COLOR,URINE YELLOW; GLUCOSE,URINE >=1000 mg/dL (NEG)
[2019-01-16 14:59] LABS: BACTERIA,URINE 0 /HPF (0-FEW); NITRITE,URINE NEG (NEG); RBC,URINE 0 /HPF (0-2); UROBILINOGEN,URINE 0.2 mg/dL (0.2 mg/dL)
[2019-01-16 15:00] VITALS: BP 139/82
[2019-01-16] MEDS: IPRATRPIUM/ALBUTEROL 0.5/2.5MG 3 ML NEBU. NEB SCH ×2 (17:02→20:25)
--- NOTE | 2019-01-16 19:12 | PDOC ---
PROVIDER NOTE PROVIDER NOTE PROVIDER NOTE Cardiology consultation note Reason for consultation syncope History of present illness 58-year-old man with multiple episodes of syncope in the past related to coughing spells. I specifically asked the patient whether he's had syncope during other times any recurrent denies any syncopal events that are unrelated to his coughing spells. He states that he goes into these coughing fits where his describes his face getting red a subsequently passes out. He barely has had extensive evaluation at 2 different medical centers for this from a cardiac perspective. He was advised previously that he does not have any significant cardiac issues. He is also wore an event monitor which apparently did not reveal any significant pathology. The patient at baseline denies any chest pain or exertional angina. He does have dyspnea related to his asthma which he's been treated for by various pulmonologists and primary care doctors. Past medical history is notable for diabetes, hypertension, dyslipidemia and obstructive sleep apnea. He reports that his sleep apnea machine is cleaned well. Social history he denies any alcohol, tobacco or illicit drug use. He is . Allergies as noted to Tylenol and oxycodone Current cardiac medications per the medication record On examination he is alert and oriented in no acute distress Cardiac exam reveals a normal rate and rhythm without any obvious murmurs. Lungs are notable for mild expiratory rhonchi Obese abdomen and protrudent without any obvious masses No significant lower ext edema Neurologically no focal deficits Diagnostic studies including troponin, creatinine, hemoglobin, platelets, white blood cell count, chest x-ray and EKG are unremarkable. Impression: 1. Syncope: Vagal in nature mostly related to a coughing spell. I did discuss with the patient the possibility of other etiologies but we will await the results from his previous testing. Although pacemaker would solve his bradycardia likely in the setting of a coughing spell that may be inducing his syncope it is unclear if it is a basal depressor syncope which would not be treated with a pacemaker. Therefore I had a long conversation with the patient and stated that he needs to follow-up with his atm technician and his ENT specialist perhaps to determine the reason for his severe coughing spells. He's also [facility] and there did not appear to be any medication related side effects that may be causing his coughing spells. Supportive care from a cardiac standpoint. No further cardiac vascular recommendations at this time. Will await [facility] records for review. GIRISH KWON MD Jan 16, 2019 19:12
[2019-01-16 19:35] VITALS: BP 153/92
[2019-01-16] MEDS ORDERED: MONT10TA9 PO (20:30)
[2019-01-16] MEDS ORDERED: DICL100G18 TP (20:30)
[2019-01-16] MEDS ORDERED: BUDE10.2 IH (20:30)
[2019-01-16] MEDS ORDERED: POTA10TA10 PO (20:30)
[2019-01-16] MEDS ORDERED: METF500T3 PO (20:30)
[2019-01-16] MEDS ORDERED: PRED1TAB PO (20:30)
[2019-01-16] MEDS ORDERED: GABA-585 PO (20:30)
[2019-01-16] MEDS ORDERED: FOLI1TAB16 PO (20:30)
[2019-01-16] MEDS ORDERED: POTA10TA17 PO (20:39)
[2019-01-16] MEDS ORDERED: DICLOFENAC SODIUM 1% TOPICAL GEL 100GM TUBE. TP PRN (20:45)
[2019-01-16] MEDS ORDERED: SERTRALINE 100 MG TABLET. PO SCH (21:00)
[2019-01-16] MEDS ORDERED: NON FORMULARY ITEM (Budesonide/Formoterol Fumarate (Symbicort 160-4.5 Mcg Inhaler) 2 PUFF) IH SCH (21:00)
[2019-01-16] MEDS ORDERED: NON FORMULARY ITEM (Potassium Chloride 20 MEQ) PO SCH (21:00)
[2019-01-16] MEDS ORDERED: METFORMIN HCL 750 MG PO SCH (21:00)
[2019-01-16] MEDS ORDERED: MONTELUKAST 10 MG TABLET. PO SCH (21:00)
[2019-01-16] MEDS ORDERED: ATORVASTATIN CALCIUM 20 MG TABLET PO SCH (21:00)
[2019-01-16] MEDS ORDERED: GABAPENTIN 100 MG CAPSULE. PO SCH (21:00)
[2019-01-16] MEDS: LACTOBACILLUS RHAMNOSUS GG 1 CAPSULE. PO SCH (21:46)
[2019-01-16] MEDS: POTASSIUM CITRATE 10 MEQ TABLET.ER PO SCH (21:48)
[2019-01-16 22:44] VITALS: BP 109/67
[2019-01-17] MEDS: HYDROmorphone PF 1 MG/ML DISP.SYRIN IV PRN (01:40)
[2019-01-17] MEDS: IPRATRPIUM/ALBUTEROL 0.5/2.5MG 3 ML NEBU. NEB SCH ×3 (04:36→16:42)
[2019-01-17 05:22] VITALS: BP 133/78
[2019-01-17] MEDS ORDERED: PANTOPRAZOLE 40 MG TABLET. PO SCH (07:30)
[2019-01-17] MEDS ORDERED: BUDESONIDE 0.5 MG/2 ML NEBU NEB SCH (08:00)
[2019-01-17] MEDS ORDERED: metFORMIN XR 500 MG TAB.ER.24H PO SCH (08:00)
[2019-01-17] MEDS: ALBUTEROL SULFATE 2.5 MG/3 ML NEBU. NEB SCH ×3 (08:00→16:00)
[2019-01-17] MEDS ORDERED: TAMSULOSIN 0.4 MG CAP.ER.24H. PO SCH (09:00)
[2019-01-17] MEDS ORDERED: DOCUSATE SODIUM 100 MG CAPSULE PO SCH (09:00)
[2019-01-17] MEDS ORDERED: CETIRIZINE HCL 10 MG TABLET PO SCH (09:00)
[2019-01-17] MEDS ORDERED: methylPREDNISolone SOD SUCC PF 125 MG/2 ML VIAL. IV SCH (09:00)
[2019-01-17] MEDS ORDERED: LOSARTAN 50 MG TABLET. PO SCH (09:00)
[2019-01-17] MEDS ORDERED: AZITHROMYCIN 250 MG TABLET. PO SCH (09:00)
[2019-01-17] MEDS ORDERED: FOLIC ACID 1 MG TABLET PO SCH (09:00)
[2019-01-17] MEDS: LACTOBACILLUS RHAMNOSUS GG 1 CAPSULE. PO SCH (09:26)
[2019-01-17] MEDS: POTASSIUM CITRATE 10 MEQ TABLET.ER PO SCH (09:28)
--- NOTE | 2019-01-17 10:35 | PDOC ---
PROGRESS NOTES Diagnosis Problem Problems Medical Problems: (1) Syncope Status: Acute Assessment Problems Medical Problems: (1) Syncope Status: Acute 1. recurrent syncope - suggest repeat event monitoring and consider tilt testing from CV perspective. follow up with primary cardiology scheduled on 2: 15 on January 30. Suggest follow up with pulmonary. ?PFTs and or bronchoscopy. Subjective ok this morning, no chest pain, no dyspnea, no palpitation, no new syncope. C/ O night time and early am coughing with significant mucous production, blood tinged this am. frustrated and want answers. Objective Vital Signs Date Time Temp Pulse Resp B/P (MAP) Pulse Ox O2 Delivery O2 Flow Rate FiO2 01/17/19 10:20 94 Room Air 01/17/19 09:27 87 133/78 01/17/19 05:22 97.9 16 Intake and Output 01/17/19 07:00 Intake Total 2120 ml Balance 2120 ml Intake Oral 1120 ml IV Total 1000 ml # Voids 5 Physical Exam Gen: awake, alert, no acute distress CV : regular rate and rhythm, no gallops, clicks or rubs Lungs: clear abd: +bowel sounds Ext: no significant edema tele : no arrhythmias Review of Relevant I have reviewed the following items eli (where applicable) has been applied. Labs Laboratory Tests Test 01/16/19 05:15 01/16/19 13:31 01/16/19 14:30 01/16/19 20:06 White Blood Count 6.8 x10^3/uL (4.0-11.0) Red Blood Count 5.30 x10^6/uL (4.30-5.70) Hemoglobin 14.1 g/dL (13.0-17.5) Hematocrit 43.3 % (39.0-53.0) Mean Corpuscular Volume 82 fL (79-100) Mean Corpuscular Hemoglobin 27 pg (25-35) Mean Corpuscular Hemoglobin Concent 33 g/dL (31-37) Red Cell Distribution Width 15.2 % (11.5-14.5) Platelet Count 252 x10^3/uL (140-400) Neutrophils (%) (Auto) 57 % (31-73) Lymphocytes (%) (Auto) 29 % (24-48) Monocytes (%) (Auto) 10 % (0-9) Eosinophils (%) (Auto) 3 % (0-3) Basophils (%) (Auto) 1 % (0-3) Neutrophils # (Auto) 3.9 x10^3uL (1.8-7.7) Lymphocytes # (Auto) 2.0 x10^3/uL (1.0-4.8) Monocytes # (Auto) 0.7 x10^3/uL (0.0-1.1) Eosinophils # (Auto) 0.2 x10^3/uL (0.0-0.7) Basophils # (Auto) 0.1 x10^3/uL (0.0-0.2) Prothrombin Time 10.1 SEC (9.4-11.4) Prothromb Time International Ratio 1.0 (0.9-1.1) Activated Partial Thromboplast Time 27 SEC (23-33) D-Dimer (Milvia) 0.42 mg/L (0.00-0.50) Sodium Level 140 mmol/L (136-145) Potassium Level 4.0 mmol/L (3.5-5.1) Chloride Level 104 mmol/L (98-107) Carbon Dioxide Level 28 mmol/L (21-32) Anion Gap 8 (6-14) Blood Urea Nitrogen 13 mg/dL (8-26) Creatinine 1.0 mg/dL (0.7-1.3) Estimated GFR (Cockcroft-Gault) 76.7 Glucose Level 134 mg/dL (70-99) Lactic Acid Level 1.8 mmol/L (0.4-2.0) Calcium Level 8.9 mg/dL (8.5-10.1) Magnesium Level 1.7 mg/dL (1.8-2.4) Total Bilirubin 0.8 mg/dL (0.2-1.0) Direct Bilirubin 0.2 mg/dL (0.0-0.2) Aspartate Amino Transf (AST/SGOT) 22 U/L (15-37) Alanine Aminotransferase (ALT/SGPT) 39 U/L (16-63) Alkaline Phosphatase 160 U/L (46-116) Creatine Kinase 260 U/L (39-308) Troponin I Quantitative < 0.017 ng/mL (0-0.055) < 0.017 ng/mL (0-0.055) OS-Wnb-H-Type Natriuretic Peptide 23 pg/mL (0-124) Total Protein 6.9 g/dL (6.4-8.2) Albumin 3.1 g/dL (3.4-5.0) Triglycerides Level 86 mg/dL (0-150) Cholesterol Level 118 mg/dL (0-200) LDL Cholesterol, Calculated 61 mg/dL (0-100) VLDL Cholesterol, Calculated 17 mg/dL (0-40) Non-HDL Cholesterol Calculated 78 mg/dL (0-129) HDL Cholesterol 40 mg/dL (40-60) Cholesterol/HDL Ratio 2.0 Lipase 77 U/L (73-393) Thyroid Stimulating Hormone (TSH) 2.715 uIU/mL (0.358-3.740) Ethyl Alcohol Level < 10 mg/dL (0-10) Urine Collection Type Unknown Urine Color Yellow Urine Clarity Clear Urine pH 7.0 Urine Specific [place] 1.015 Urine Protein Neg (NEG-TRACE) Urine Glucose (UA) >=1000 mg/dL (NEG) Urine Ketones (Stick) Trace mg/dL (NEG) Urine Blood Neg (NEG) Urine Nitrite Neg (NEG) Urine Bilirubin Neg (NEG) Urine Urobilinogen Dipstick 0.2 mg/dL (0.2 mg/dL) Urine Leukocyte Esterase Neg (NEG) Urine RBC 0 /HPF (0-2) Urine WBC 1-4 /HPF (0-4) Urine Squamous Epithelial Cells None /LPF Urine Bacteria 0 /HPF (0-FEW) Urine Opiates Screen Pos (NEG) Urine Methadone Screen Neg (NEG) Urine Barbiturates Neg (NEG) Urine Phencyclidine Screen Neg (NEG) Urine Amphetamine/Methamphetamine Neg (NEG) Urine Benzodiazepines Screen Neg (NEG) Urine Cocaine Screen Neg (NEG) Urine Cannabinoids Screen Neg (NEG) Urine Ethyl Alcohol Neg (NEG) Glucose (Fingerstick) 274 mg/dL (70-99) Test 01/16/19 22:35 01/17/19 07:34 Glucose (Fingerstick) 197 mg/dL (70-99) 144 mg/dL (70-99) Microbiology 01/16/19 Blood Culture - Preliminary, Resulted NO GROWTH AFTER 1 DAY... Medications Current Medications Lactated Ringer's 1,000 ml @ 100 mls/hr Q10H IV Last administered on at 21:46; Start 01/16/19 at 05:30; Stop 01/16/19 at 15:29; Status DC Lidocaine/ Epinephrine (Xylocaine 2%-Epi 1:100,000) 20 ml 1X ONCE IJ Last administered on 01/16/19at 05:45; Start 01/16/19 at 05:30; Stop 01/16/19 at 05:53 ; Status DC Diphtheria/ Tetanus/Acell Pertussis (Boostrix) 0.5 ml ONCE ONCE VAX IM ; Start 01/16/19 at 06:00; Stop 01/16/19 at 06:01; Status DC Azithromycin (Zithromax) 500 mg 1X ONCE PO Last administered on 01/16/19at 07: 11; Start 01/16/19 at 06:00; Stop 01/16/19 at 06:01; Status DC Albuterol/ Ipratropium (Duoneb) 3 ml 1X ONCE NEB Last administered on at 06:18; Start 01/16/19 at 06:00; Stop 01/16/19 at 06:01; Status DC Methylprednisolone Sodium Succinate (SOLU-Medrol 125MG VIAL) 125 mg 1X ONCE IV Last administered on 01/16/19at 07:10; Start 01/16/19 at 06:45; Stop 01/16/19 at 06:46; Status DC Albuterol Sulfate (Ventolin) 2.5 mg 1X ONCE NEB ; Start 01/16/19 at 06:45; Stop 01/16/19 at 06:46; Status DC Lactated Ringer's 1,000 ml @ 100 mls/hr Q10H IV Last administered on at 07:11; Start 01/16/19 at 06:30; Stop 01/16/19 at 16:29; Status DC Ondansetron HCl (Zofran) 4 mg PRN Q4HRS PRN IV NAUSEA/VOMITING; Start 01/16/19 at 06:45; Stop 01/17/19 at 06:44; Status DC Albuterol/ Ipratropium (Duoneb) 3 ml RTQID NEB ; Start 01/16/19 at 08:00; Stop 01/17/19 at 07:59; Status Cancel Methylprednisolone Sodium Succinate (SOLU-Medrol 125MG VIAL) 125 mg DAILY IV Last administered on 01/17/19at 09:27; Start 01/17/19 at 09:00 Albuterol/ Ipratropium (Duoneb) 3 ml RTQID NEB Last administered on 01/17/19 10:19; Start 01/16/19 at 12:00 Azithromycin (Zithromax) 250 mg DAILY PO Last administered on 01/17/19 09:26; Start 01/17/19 at 09:00 Ibuprofen (Motrin) 600 mg 1X ONCE PO Last administered on 01/16/19 07:53; Start 01/16/19 at 08:00; Stop 01/16/19 at 08:01; Status DC Fentanyl Citrate (Fentanyl 2ml Vial) 50 mcg 1X ONCE IV Last administered on 09:22; Start 01/16/19 at 09:30; Stop 01/16/19 at 09:31; Status DC Metoclopramide HCl (Reglan Vial) 10 mg 1X ONCE IV Last administered on 10:40; Start 01/16/19 at 10:30; Stop 01/16/19 at 10:31; Status DC Diphenhydramine HCl (Benadryl) 25 mg 1X ONCE IVP Last administered on 10:40; Start 01/16/19 at 10:30; Stop 01/16/19 at 10:31; Status DC Ketorolac Tromethamine (Toradol 30mg Vial) 30 mg 1X ONCE IV Last administered on 01/16/19 10:36; Start 01/16/19 at 10:30; Stop 01/16/19 at 10:31; Status DC Hydromorphone HCl (Dilaudid) 1 mg PRN Q3HRS PRN IV PAIN Last administered on 01:40; Start 01/16/19 at 13:15 Lactobacillus Rhamnosus (Culturelle) 1 cap BID PO Last administered on 09:26; Start 01/16/19 at 21:00 Diclofenac Sodium (Voltaren) 1 maria l PRN QID PRN TP PAIN; Start 01/16/19 at 20:45 Gabapentin (Neurontin) 200 mg QHS PO Last administered on 01/16/19 21:46; Start 01/16/19 at 21:00 Losartan Potassium (Cozaar) 50 mg DAILY PO Last administered on 01/17/19 09:27 ; Start 01/17/19 at 09:00 Sertraline HCl (Zoloft) 100 mg QHS PO Last administered on 01/16/19 21:46; Start 01/16/19 at 21:00 Tamsulosin HCl (Flomax) 0.4 mg DAILY PO Last administered on 01/17/19 09:27; Start 01/17/19 at 09:00 Atorvastatin Calcium (Lipitor) 40 mg QHS PO Last administered on 01/16/19 21: 46; Start 01/16/19 at 21:00 Non-Formulary Medication (Budesonide/ Formoterol Fumarate (Symbicort 160-4.5 Mcg Inhaler)) 2 puff BID IH ; Start 01/16/19 at 21:00; Stop 01/16/19 at 21:00; Status DC Cetirizine HCl (ZyrTEC) 10 mg DAILY PO Last administered on 01/17/19 09:27; Start 01/17/19 at 09:00 Folic Acid (Folic Acid) 1 mg DAILY PO Last administered on 01/17/19 09:27; Start 01/17/19 at 09:00 Non-Formulary Medication (Metformin Hcl (Glucophage Xr)) 750 mg BID PO ; Start 01/16/19 at 21:00; Stop 01/17/19 at 07:16; Status DC Montelukast Sodium (Singulair) 10 mg QHS PO Last administered on 01/16/19 21: 45; Start 01/16/19 at 21:00 Pantoprazole Sodium (Protonix) 40 mg DAILYAC PO Last administered on 01/17/19 09:27; Start 01/17/19 at 07:30 Non-Formulary Medication (Potassium Chloride ) 20 meq BID PO ; Start 01/16/19 at 21:00; Stop 01/16/19 at 21:00; Status DC Potassium Citrate (Urocit-K) 20 meq BID PO Last administered on 01/17/19 09:28 ; Start 01/16/19 at 21:00 Budesonide (Pulmicort) 0.5 mg RTBID NEB Last administered on 01/17/19 10:19; Start 01/17/19 at 08:00 Albuterol Sulfate (Ventolin) 2.5 mg RTQID NEB ; Start 01/17/19 at 08:00 Docusate Sodium (Colace) 100 mg DAILY PO Last administered on 01/17/19at 09:28; Start 01/17/19 at 09:00 Metformin HCl (Glucophage Xr) 750 mg BIDWMEALS PO ; Start 01/17/19 at 08:00 Active Scripts Active Reported Potassium Citrate 10 Meq Tablet.er 2 Tab PO BID Prednisone 1 Mg Tablet Unknown Dose PO PRN PRN Symbicort 160-4.5 Mcg Inhaler (Budesonide/Formoterol Fumarate) 10.2 Gm Hfa.aer.ad 2 Puff IH BID Montelukast Sodium Tablet (Montelukast Sodium) 10 Mg Tablet 10 Mg PO HS Glucophage Xr (Metformin Hcl) 500 Mg Tab.er.24h 750 Mg PO BID Folic Acid 1 Mg Tablet 1 Mg PO DAILY Voltaren (Diclofenac Sodium) 100 Gm Gel..gram. 1 Gm TP PRN PRN Gabapentin (Gabapentin) 100 Mg Capsule 200 Mg PO QHS Sertraline Hcl 100 Mg Tablet 100 Mg PO QHS Pantoprazole Sodium 40 Mg Tablet.dr 1 Tab PO DAILY Flomax (Tamsulosin Hcl) 0.4 Mg Cap.er.24h 1 Cap PO DAILY Cetirizine Hcl 10 Mg Tablet 1 Tab PO DAILY Losartan Potassium (Losartan Potassium) 50 Mg Tablet 50 Mg PO DAILY Proair Hfa Inhaler (Albuterol Sulfate) 8.5 Gm Hfa.aer.ad 1 Puff INH PRN Q6HRS PRN Lipitor (Atorvastatin Calcium) 40 Mg Tablet 40 Mg PO QHS Vitals/I & O Vital Sign - Last 24 Hours 01/16/19 01/16/19 01/16/19 01/16/19 11:41 12:05 15:00 17:05 Temp 98.0 97.4 Pulse 75 77 Resp 20 20 B/P (MAP) 161/96 (117) 139/82 (101) Pulse Ox 93 94 96 O2 Delivery Room Air Room Air Room Air Room Air 01/16/19 01/16/19 01/16/19 01/16/19 19:20 19:20 19:35 20:26 Temp 98.5 Pulse 88 Resp 20 22 B/P (MAP) 153/92 (112) Pulse Ox 92 94 O2 Delivery Room Air Room Air Room Air Room Air 01/16/19 01/17/19 01/17/19 01/17/19 22:44 01:40 04:36 05:22 Temp 98.1 97.9 Pulse 87 87 Resp 22 20 16 B/P (MAP) 109/67 (81) 133/78 (96) Pulse Ox 92 95 93 O2 Delivery Room Air Room Air Room Air Room Air 01/17/19 01/17/19 01/17/19 08:00 09:27 10:20 Pulse 87 B/P (MAP) 133/78 Pulse Ox 94 O2 Delivery Room Air Room Air Intake and Output 01/16/19 01/16/19 01/17/19 15:00 23:00 07:00 Intake Total 240 ml 1480 ml 400 ml Balance 240 ml 1480 ml 400 ml LB SERRANO [employer] Jan 17, 2019 10:35
[2019-01-17 10:54] VITALS: BP 126/72
[2019-01-17 14:21] VITALS: BP 148/78
--- NOTE | 2019-01-17 19:40 | DS ---
DATE OF DISCHARGE: 01/17/2019 HOSPITAL COURSE: The patient is a 58-year-old male patient, who was admitted with recurrent syncope. He apparently was extensively investigated from cardiac point of view had an echocardiogram and a stress test done by his primary site identification specialist, Dr. Vo. Our Cardiology team recommended that the patient needs further followup with the rn gastroenterology including perhaps pulmonary function test, bronchoscopy as he has had 6 episodes of syncope related all to episodes of cough usually at night or early in the morning when he wakes up. At this time, he actually fell and had had laceration of his right forehead that required suturing and as he continued to have without any resolution to his symptoms, I contacted the transfer center and rn gastroenterology and Dr. Castro with the hospitalist were kind enough to accept him as a transfer for further evaluation and treatment. PHYSICAL EXAMINATION: GENERAL: When I saw him this afternoon, he looked well and was clearly in no apparent respiratory distress. No pallor, jaundice, cyanosis, or thyromegaly. No jugular venous distension. No limb edema. VITAL SIGNS: His heart rate was 98, blood pressure 148/78, temperature was 97.9, respiratory rate was 22 and oxygen saturation was 96% on room air. HEAD, EYES, EARS, NOSE AND THROAT: Showed normocephalic, atraumatic. NECK: Supple. HEART: Showed normal first and second sounds. No gallop, rub or murmur. CHEST: Shows central trachea, equal bilateral expansion, air entry, vesicular sounds. No crepitation or rhonchi. ABDOMEN: Distended, soft, nontender. NEUROLOGIC: He was awake, alert, responding appropriately. All cranial nerves intact. EXTREMITIES: He moves extremities without difficulty, ambulates without assistance or assistive devices. Examination of the skin showed that he has a laceration on the right forehead that was sutured. LABORATORY DATA: His lab work this morning showed that his white cell count was 6800, hemoglobin 14, hematocrit 43, MCV 82 and platelet count 252,000. His lab work showed a serum sodium 140, potassium 4, chloride 104, bicarbonate 28, anion gap of 8, BUN 13, creatinine 1, estimated GFR was 77 mL per minute, his glucose 134, lactic acid was 1.8, calcium was 8.9, magnesium was 1.7. Total bilirubin, AST, and ALT were normal. Alkaline phosphatase slightly elevated. He has 2 sets of cardiac enzymes to rule out myocardial infarction. His serum triglycerides were 86, total cholesterol 118, LDL cholesterol was 61, VLDL was 17, HDL cholesterol was 40 and the ratio was 2. Serum lipase was 77. TSH was 2.715. His prothrombin time was 10, INR of 1, aPTT was 24 and D-dimer was 0.42. His urinalysis was essentially unremarkable except that he has large amount of glucose and his toxic screen was positive for opiates, negative for all other drugs. He has had a CT scan of the head and cervical spine and a CT scan of the head showed that there is no intracranial hemorrhage, mass, hydrocephalus, extraaxial fluid collection or infarction. The orbits, mastoids, paranasal sinuses, and bones are all unremarkable. His cervical spine showed the craniocervical junction intact. Cervical vertebral body height and alignment intact. No fracture of the cervical spine. Paraspinal tissues and lung apices are unremarkable. DISCHARGE MEDICATIONS: He will be discharged to [facility] to continue albuterol sulfate 1 puff every 6 hours, atorvastatin calcium 40 mg at bedtime, Symbicort 160/4.5 two puffs twice a day, cetirizine 10 mg once a day, diclofenac sodium, Voltaren gel 1 gram 4 times a day, folic acid 1 mg once a day, gabapentin 200 mg at bedtime, losartan potassium 50 mg daily, metformin 750 mg twice a day, montelukast sodium 10 mg at bedtime, Protonix 40 mg once a day, potassium chloride 20 mEq twice a day, prednisone 1 mg as needed, sertraline 100 mg once a day and Flomax 0.4 mg at bedtime. FINAL DISCHARGE DIAGNOSES: Recurrent cough-induced syncope with a fall sustaining laceration of the right forehead. OTHER MEDICAL PROBLEMS: Type 2 diabetes mellitus, hypertension, hyperlipidemia, coronary artery disease, nephrolithiasis. He stated that he had lithotripsy about 18 times. He has morbid obesity, obstructive sleep apnea, on CPAP, chronic bronchitis, questionable seizure disorder. He is also known to have bronchial asthma. CHERELLE CALDERA MD DR: TOSHIA/tony JOB#: [id number] / [id number]
[2019-01-17] MEDS ORDERED: METFORMIN 750 MG PO SCH (21:00)
--- NOTE | 2019-01-18 12:39 | EKG ---
[address] [address] Test Date: 2019-01-16 Test Time: 06:16:57 Pat Name: JAMIN HIDALGO Department: Room: 123 A Gender: M Instrument Technologist: : [id number] Requested By: KALYAN GUERIN Order Number: [id number] Reading MD: Víctor Eugene MD Measurements Intervals [place] Rate: 95 P: 62 NC: 136 QRS: 30 QRSD: 84 T: 32 QT: 334 QTc: 423 Interpretive Statements SINUS RHYTHM Electronically Signed On 01-25-2019 9:25:17 CDT by Víctor Eugene MD
== END 2019-01-17 18:41 | disposition short-term general hospital (02) | DRG 312 ==
LOC: ER 04:59 → ICU 06:00 → 1 SOUTH 06:01
PROVIDERS: ADMIT Internal Medicine; ATTEND Internal Medicine
PROC: 0HQ1XZZ Repair Face Skin, External Approach (ICD-10-PCS; principal; 2019-01-16)
DX: R55 Syncope and collapse (principal); R00.1 Bradycardia, unspecified; S01.111A Laceration without foreign body of right eyelid and periocular area, initial encounter; E11.9 Type 2 diabetes mellitus without complications; E66.01 Morbid (severe) obesity due to excess calories; Z68.39 Body mass index [BMI] 39.0-39.9, adult; E78.00 Pure hypercholesterolemia, unspecified; E78.5 Hyperlipidemia, unspecified; G47.33 Obstructive sleep apnea (adult) (pediatric); I10 Essential (primary) hypertension; I25.10 Atherosclerotic heart disease of native coronary artery without angina pectoris; J45.909 Unspecified asthma, uncomplicated; K21.9 Gastro-esophageal reflux disease without esophagitis; G40.909 Epilepsy, unspecified, not intractable, without status epilepticus; S01.81XA Laceration without foreign body of other part of head, initial encounter; W18.39XA Other fall on same level, initial encounter; Y93.89 Activity, other specified; Y92.89 Other specified places as the place of occurrence of the external cause; Y99.8 Other external cause status; Z80.42 Family history of malignant neoplasm of prostate; Z83.3 Family history of diabetes mellitus; Z87.442 Personal history of urinary calculi; Z88.5 Allergy status to narcotic agent; Z88.8 Allergy status to other drugs, medicaments and biological substances; J42 Unspecified chronic bronchitis; J47.9 Bronchiectasis, uncomplicated
CPT/HCPCS: 12013; 36415; 70450; 71045; 72125; 80048; 80061; 80076; 80307; 81001; 82550; 82947; 83605; 83690; 83735; 83880; 84443; 84484; 85025; 85379; 85610; 85730; 87040; 93005; 94640; 96361; 96374; 96375; G0238; G0480; J0456; J1170; J1200; J1885; J2765; J2930; J3010; J7120; J7620; J7626; 99285-25